=== PATIENT | female | born 1930 | race Caucasian/White ===

== ENCOUNTER 2017-06-07 08:16 | Outpatient (CLI) | payer OTHER ==
[2017-06-07 09:14] LABS: ALANINE AMINOTRANSFERASE 13 U/L (12-78); ALBUMIN 2.5 g/dL (3.4-4.8); ASPARTATE AMINOTRANSFERASE 14 U/L (10-37); CALCIUM 8.6 mg/dL (8.4-11.0); CHLORIDE 111 mmol/L (98-107); CREATININE 1.38 mg/dL (0.55-1.30); GLUCOSE 88 mg/dL (70-99); POTASSIUM 4.2 mmol/L (3.5-5.1); SODIUM SERUM 143 mmol/L (136-145); TOTAL BILIRUBIN 0.4 mg/dL (0.0-1.0); UREA NITROGEN, BLOOD 29 mg/dL (8-21)
[2017-06-07 09:16] LABS: ANION GAP < 3 (5-15)
== END 2017-06-07 19:34 | disposition home or self-care (01) ==
LOC: SLB 08:16
PROVIDERS: ATTEND Physician Assistant Medical
DX: I71.4 Abdominal aortic aneurysm, without rupture (principal)
CPT/HCPCS: 36415; 80053

== ENCOUNTER 2017-06-16 09:04 | Outpatient (CLI) | payer OTHER ==
[2017-06-16 09:42] LABS: BASOPHILS % (AUTO) 0.7 % (0.0-2.0); EOSINOPHILS # (AUTO) 0.2 K/uL (0.0-0.4); EOSINOPHILS % (AUTO) 4.1 % (0.0-4.0); HEMATOCRIT 31.4 % (36-48); HEMOGLOBIN 9.9 g/dL (12.0-16.0); LYMPHOCYTES # (AUTO) 0.9 K/uL (1.0-5.5); LYMPHOCYTES % (AUTO) 19.4 % (20.5-51.5); MEAN CORPUSCULAR HEMOGLOBIN 29 pg (27-31); MEAN CORPUSCULAR HGB CONC 31 % (32-36); MEAN CORPUSCULAR VOLUME 92 fL (79.0-98.0); MONOCYTES # (AUTO) 0.4 K/uL (0.0-1.0); MONOCYTES % (AUTO) 7.9 % (1.7-9.3); NEUTROPHILS # (AUTO) 3.4 K/uL (1.8-7.7); NEUTROPHILS % (AUTO) 67.9 % (40.0-70.0); PLATELET COUNT (AUTO) 187 K/uL (130-430); RED BLOOD CELL COUNT(AUTO) 3.41 MIL/uL (4.2-6.2); RED CELL DISTRIBUTION WIDTH 15.9 % (9.0-15.0); WHITE BLOOD COUNT (AUTO) 4.9 K/uL (4.8-10.8)
[2017-06-16 09:51] LABS: ALANINE AMINOTRANSFERASE 14 U/L (12-78); ALBUMIN 2.9 g/dL (3.4-4.8); ANION GAP 4 (5-15); ASPARTATE AMINOTRANSFERASE 15 U/L (10-37); CALCIUM 8.5 mg/dL (8.4-11.0); CHLORIDE 110 mmol/L (98-107); CREATININE 1.52 mg/dL (0.55-1.30); GLUCOSE 106 mg/dL (70-99); POTASSIUM 4.4 mmol/L (3.5-5.1); SODIUM SERUM 143 mmol/L (136-145); TOTAL BILIRUBIN 0.3 mg/dL (0.0-1.0); UREA NITROGEN, BLOOD 26 mg/dL (8-21)
== END 2017-06-16 20:59 | disposition home or self-care (01) ==
LOC: SLB 09:04
PROVIDERS: ATTEND Physician Assistant Medical
DX: T14.8 Other injury of unspecified body region (principal); I71.4 Abdominal aortic aneurysm, without rupture; M79.89 Other specified soft tissue disorders; X58.XXXA Exposure to other specified factors, initial encounter; Y93.89 Activity, other specified; Y92.89 Other specified places as the place of occurrence of the external cause; Y99.8 Other external cause status
CPT/HCPCS: 36415; 80053; 85025

== ENCOUNTER 2017-07-20 07:41 | Outpatient (CLI) | payer OTHER ==
[2017-07-21 11:14] LABS: FOLATE (FOLIC ACID) 6.5 ng/mL (>3.0)
== END 2017-07-20 20:47 | disposition home or self-care (01) ==
LOC: SLB 07:41
PROVIDERS: ATTEND Psychiatry & Neurology Neurology
DX: I71.4 Abdominal aortic aneurysm, without rupture (principal); M79.89 Other specified soft tissue disorders
CPT/HCPCS: 36415; 82607; 82746

== ENCOUNTER 2018-05-16 08:47 | Outpatient (CLI) | payer OTHER ==
[~2018-05-16 08:47] MED LIST: ACET-2634 PO; ACLI400A2 IH; ALBMDI INH; ASA81 PO; BENZ-16 PO; BUDE6HFA INH; CAT.1 PO; CAT1PAT TD; CHOL100034 PO; CYAN250014 PO; ESCI10TA PO; FAMO20TA8 PO; HAL1 PO; HYDR12.585 PO; IPRA21SP NS; LEVO125T8 PO; LIP10 PO; LISI-209 PO; MEMA10TA PO; SPIRIVA INH; TRAZ-123 PO; iron PO
== END 2018-05-16 19:36 | disposition home or self-care (01) ==
LOC: SMI 08:47 → SLB 19:36
PROVIDERS: ATTEND Psychiatry & Neurology Neurology
DX: G31.9 Degenerative disease of nervous system, unspecified (principal); G60.9 Hereditary and idiopathic neuropathy, unspecified; I10 Essential (primary) hypertension; J44.1 Chronic obstructive pulmonary disease with (acute) exacerbation
CPT/HCPCS: 70551

== ENCOUNTER 2019-01-25 22:06 | Emergency (ER) | payer OTHER ==
[~2019-01-25] VITALS: Ht 165.1 cm; Wt 59.0 kg
[~2019-01-25 22:06] MED LIST changes: -TRAZ-123 PO; +TRAZ-218 PO
[2019-01-25 22:09] VITALS: BP_SYST 127
[2019-01-25] MEDS ORDERED: DONE10TA44 PO (22:32)
[2019-01-26] MEDS ORDERED: DIPH-TET-PERTUS Vaccine 0.5 ML VIAL (ADACEL) I.M. ONE (00:15)
[2019-01-26] MEDS ORDERED: DIPH-TET Vacc 0.5 ML VIAL I.M. ONE (00:30)
[2019-01-26 01:18] VITALS: BP_SYST 127
== END 2019-01-26 01:18 | disposition home or self-care (01) ==
LOC: SED 22:06
DX: S61.412A Laceration without foreign body of left hand, initial encounter (principal); J44.9 Chronic obstructive pulmonary disease, unspecified; I10 Essential (primary) hypertension; E03.9 Hypothyroidism, unspecified; Z88.5 Allergy status to narcotic agent; Z88.8 Allergy status to other drugs, medicaments and biological substances; Z79.82 Long term (current) use of aspirin; Z79.899 Other long term (current) drug therapy; Y04.0XXA Assault by unarmed brawl or fight, initial encounter; Y93.89 Activity, other specified; Y92.89 Other specified places as the place of occurrence of the external cause; Y99.8 Other external cause status
CPT/HCPCS: 90714; 90715; 99283

== ENCOUNTER 2019-02-09 09:55 | Inpatient (IN) | payer OTHER ==
[~2019-02-09] VITALS: Ht 165.1 cm; Wt 60.8 kg
[~2019-02-09 09:55] MED LIST changes: +DONE10TA44 PO
[2019-02-09 10:14] VITALS: BP_SYST 101
--- NOTE | 2019-02-09 10:14 | NUR ---
Placed in room 05. Placed on satellite project site monitor, blood pressure machine and pulse oximeter. To gown for exam. Side rails up. Pt lives at [facility].
--- NOTE | 2019-02-09 10:30 | NUR ---
PT PRESENTS TO ED C/O COUGH AND CHEST PAIN . PT H/O DEMENTIA AND RECENT COUGH.
--- NOTE | 2019-02-09 10:40 | NUR ---
ER Dr. Pedraza at bedside examining patient.
[2019-02-09] MEDS ORDERED: PANTOPRAZOLE SODIUM 40 MG/VIAL (PROTONIX) IVP ONE (11:00)
--- NOTE | 2019-02-09 11:30 | NUR ---
PT HAS RESTING IN BED W/FAMILY AT BEDSIDE.CONTINUING TO MONITOR
[2019-02-09 11:32] LABS: BASOPHILS % (AUTO) 0.4 % (0.0-2.0); EOSINOPHILS % (AUTO) 0.5 % (0.0-4.0); HEMATOCRIT 35.5 % (36-48); HEMOGLOBIN 11.6 g/dL (12.0-16.0); LYMPHOCYTES # (AUTO) 0.7 K/uL (1.0-5.5); LYMPHOCYTES % (AUTO) 8.7 % (20.5-51.5); MEAN CORPUSCULAR HEMOGLOBIN 31 pg (27-31); MEAN CORPUSCULAR HGB CONC 33 % (32-36); MEAN CORPUSCULAR VOLUME 95 fL (79.0-98.0); MONOCYTES # (AUTO) 0.5 K/uL (0.0-1.0); MONOCYTES % (AUTO) 5.5 % (1.7-9.3); NEUTROPHILS % (AUTO) 84.9 % (40.0-70.0); PLATELET COUNT (AUTO) 170 K/uL (130-430); RED BLOOD CELL COUNT(AUTO) 3.73 MIL/uL (4.2-6.2); RED CELL DISTRIBUTION WIDTH 14.1 % (9.0-15.0); WHITE BLOOD COUNT (AUTO) 8.2 K/uL (4.8-10.8)
[2019-02-09] MEDS ORDERED: IPRATROPIUM/ALBUTEROL SULFATE 3 ML AMPUL.NEB (DUONEB) INH ONE (11:45)
[2019-02-09 11:47] LABS: ANION GAP 7 (5-15); CALCIUM 8.6 mg/dL (8.4-11.0); CHLORIDE 105 mmol/L (98-107); CREATININE 1.95 mg/dL (0.55-1.30); GLUCOSE 93 mg/dL (70-99); POTASSIUM 4.9 mmol/L (3.5-5.1); SODIUM SERUM 142 mmol/L (136-145); UREA NITROGEN, BLOOD 42 mg/dL (8-21)
[2019-02-09 11:51] LABS: PROTHROMBIN TIME 10.3 SECS (9.5-12.5)
[2019-02-09 11:56] LABS: ALANINE AMINOTRANSFERASE 17 U/L (12-78); ALBUMIN 2.9 g/dL (3.4-4.8); ASPARTATE AMINOTRANSFERASE 25 U/L (10-37); TOTAL BILIRUBIN 0.3 mg/dL (0.0-1.0)
--- NOTE | 2019-02-09 12:30 | NUR ---
PT AMBUALTED TO RESTROMM W/MODERATE ASSIST FROM FAMILY.PT TOLERATED WELL.
--- NOTE | 2019-02-09 13:30 | NUR ---
PT MAINTAIN NO ACUTE DISTRESS AT THIS TIME.PT REPOSITION FOR COMFORT.
--- NOTE | 2019-02-09 14:21 | NUR ---
Pt resting no acute distress noted at this time.
--- NOTE | 2019-02-09 15:00 | NUR ---
PT DNR PER FAMILY AT BEDSIDE.
[2019-02-09] MEDS ORDERED: POTA10TA15 PO (15:13)
[2019-02-09] MEDS ORDERED: GUAI600T86 PO (15:13)
[2019-02-09] MEDS ORDERED: AMOX/K PO (15:13)
[2019-02-09] MEDS ORDERED: FURO-150 PO (15:13)
--- NOTE | 2019-02-09 15:13 | NUR ---
Medication reconciliation completed with information provided by [facility]. Any prior medication reconciliation on file was reviewed and corrected.
--- NOTE | 2019-02-09 16:11 | NUR ---
Patient will be admitted to care of Dr. Bautista. Admitted to tele unit. Will go to room 129B. Belongings list completed. Summary report printed. Report will be given at bedside. Transfer to tele via ACLS protocol. Licensed nurse present. IV present no signs or symptoms of infiltration.
--- NOTE | 2019-02-09 16:27 | NUR ---
ADMIT NOTE Received pt from ER to the floor with a diagnosis of SHORTNESS OF BREATH, R/O PE. Admission process initiated. patient oriented to pain management, safety and call light-teach back done.
[2019-02-09 16:43] VITALS: BP_SYST 179
[2019-02-09] MEDS ORDERED: HALOPERIDOL 1 MG TABLET (HALDOL) PO SCH (17:00)
[2019-02-09] MEDS ORDERED: cloNIDine HCL 0.1 MG TABLET PO PRN (17:00)
[2019-02-09] MEDS ORDERED: CARVEDILOL 12.5 MG TABLET (COREG) PO ONE (17:00)
[2019-02-09] MEDS ORDERED: LevALBUTEROL HCL 1.25 MG/0.5 ML *CONC.* VIAL.NEB (XOPENEX CONC.) INH PRN ×2 (17:00→18:15)
[2019-02-09] MEDS ORDERED: ACETAMINOPHEN 650 MG SUPP.RECT RC PRN (17:00)
--- NOTE | 2019-02-09 17:27 | NUR ---
CONSULTATION PAGED/CALLED Reason for Consultation: [] PNA Person Who was Notified: [] DR ZAPATA Consulting Physician: [] DR ZAPATA Commercial Roofing Estimator Specialty: [] PULMONOLOGY Ordering Physician: [] DR RUTLEDGE
[2019-02-09] MEDS ORDERED: IPRATROPIUM BROM 0.5 MG/2.5 ML VIAL.NEB (ATROVENT) INH PRN (18:00)
--- NOTE | 2019-02-09 18:00 | NUR ---
Note Pt came to floor at 1600. Orineted to room and nursing routines and facilities. Pt was given tele unit on admission to floor. Pt has some chest pain/discomfort from 2 weeks of continuous coughing. Pt was seen and assessed by Dr Bautista and Dr Nelson. Orders written and carried out. Pt was assisted in eating her dinner by her daughter in law at this time. IV in right forearm intact and patent at this time. No needs given.
[2019-02-09] MEDS: KETOROLAC TROMETHAMINE 15 MG VIAL IVP PRN (18:13)
--- NOTE | 2019-02-09 18:30 | NUR ---
Note Pt off the floor via wheelchair to VQ-scan at this time. Pt was given Coreg PO and Toradol IVP.
--- NOTE | 2019-02-09 19:30 | NUR ---
initial notes: pt is came back from vq scan and now having doppler of both legs. pt tolerate well. pt has iv lock to her right forearm gauge 22- intact. pt has skin tear to her right anterior leg and right elbow. vital sign are with normal limit. explained plan of care tonight. pt agree. needs attended. call light in reach. side rails up. bed alarm on. will monitor.
[2019-02-09 20:21] VITALS: BP_SYST 141
[2019-02-09] MEDS: IPRATROPIUM BROM 0.5 MG/2.5 ML VIAL.NEB (ATROVENT) INH SCH (20:21)
[2019-02-09] MEDS: LevALBUTEROL HCL 1.25 MG/0.5 ML *CONC.* VIAL.NEB (XOPENEX CONC.) INH SCH (20:21)
[2019-02-09] MEDS: BUDESONIDE 0.5 MG/2 ML AMPUL.NEB INH SCH (20:59)
--- NOTE | 2019-02-09 21:00 | NUR ---
DR. RUTLEDGE IS IN THE ROOM. ASK MD IF PT NEEDS BLOOD CULTURE BEFORE GIVIEN IV ANTIBIOTIC. MD STATED PT DONT NEED BLOOD CULTURE AND CONTINUE WITH THE ANTIBIOTIC.
[2019-02-09] MEDS: D5/0.45 NS 1,000 ML IV SCH (21:16)
[2019-02-09] MEDS: methylPREDNISolone SOD SUCC 40 MG/ML VIAL IVP SCH (21:21)
[2019-02-09] MEDS: ATORVASTATIN 10 MG TABLET PO SCH (21:24)
[2019-02-09] MEDS: cefTRIAXone 1 GM in D5W 50 ML IV SCH (21:24)
[2019-02-09] MEDS: guaiFENesin ER 600 MG TAB PO SCH (21:25)
[2019-02-09] MEDS: ENOXAPARIN SODIUM 30 MG/0.3 ML SYRINGE SUBCUT SCH (21:45)
[2019-02-09] MEDS: traZODone HCL 50 MG TABLET (DESYREL) PO SCH (21:47)
--- NOTE | 2019-02-09 22:00 | NUR ---
pt is still awake. alert. assisted pt to bedside commode. back to bed. pt tolerate well. safety on. call light in reach. bed alarm on. will monitor.
[2019-02-09] MEDS: AZITHROMYCIN 500 MG in NS 250 ML IV SCH (23:31)
[2019-02-09] MEDS ORDERED: ACETAMINOPHEN 325 MG TABLET PO PRN (23:45)
--- NOTE | 2019-02-10 | NUR ---
assisted pt to bathroom. unsteady gait observe. back to bed. needs attended. call light in reach. bed alarm on. will monitor.
[2019-02-10] MEDS: LevALBUTEROL HCL 1.25 MG/0.5 ML *CONC.* VIAL.NEB (XOPENEX CONC.) INH SCH ×4 (01:13→20:24)
[2019-02-10] MEDS: IPRATROPIUM BROM 0.5 MG/2.5 ML VIAL.NEB (ATROVENT) INH SCH ×4 (01:14→20:24)
--- NOTE | 2019-02-10 02:17 | NUR ---
notes: pt is awake, alert. ask for snacks. stable. no pain. needs attended. call light in reach. bed alarm on. will monitor.
[2019-02-10 03:30] VITALS: BP_SYST 138
--- NOTE | 2019-02-10 04:15 | NUR ---
notes: pt is sleeping, no sob, no coughing noted. stable. ivf infusing well. bed alarm on. side rails up. low bed position. will monitor.
[2019-02-10] MEDS: guaiFENesin/DEXTROMETHORPHAN 10 ML UDC PO PRN (06:09)
[2019-02-10 06:15] LABS: BASOPHILS % (AUTO) 0.2 % (0.0-2.0); HEMATOCRIT 33.6 % (36-48); LYMPHOCYTES # (AUTO) 0.3 K/uL (1.0-5.5); LYMPHOCYTES % (AUTO) 5.5 % (20.5-51.5); MEAN CORPUSCULAR HEMOGLOBIN 31 pg (27-31); MEAN CORPUSCULAR HGB CONC 33 % (32-36); MEAN CORPUSCULAR VOLUME 95 fL (79.0-98.0); MONOCYTES % (AUTO) 0.6 % (1.7-9.3); NEUTROPHILS # (AUTO) 5.7 K/uL (1.8-7.7); NEUTROPHILS % (AUTO) 93.7 % (40.0-70.0); PLATELET COUNT (AUTO) 159 K/uL (130-430); RED BLOOD CELL COUNT(AUTO) 3.55 MIL/uL (4.2-6.2); RED CELL DISTRIBUTION WIDTH 13.7 % (9.0-15.0); WHITE BLOOD COUNT (AUTO) 6.1 K/uL (4.8-10.8)
--- NOTE | 2019-02-10 06:15 | NUR ---
notes: pt is awake, alert. complain of coughing. prn for coughing given. assisted to bathroom and back to bed. needs attended. safety on. bed alarm on. francia llight in reach. will monitor.
[2019-02-10 06:26] LABS: ANION GAP 6 (5-15); CHLORIDE 103 mmol/L (98-107); CREATININE 1.98 mg/dL (0.55-1.30); GLUCOSE 216 mg/dL (70-99); POTASSIUM 4.8 mmol/L (3.5-5.1); SODIUM SERUM 138 mmol/L (136-145); UREA NITROGEN, BLOOD 45 mg/dL (8-21)
--- NOTE | 2019-02-10 07:20 | NUR ---
closing: pt is awake, alert.having breathing treatment. stable. ivf infusing well. needs attended the whole shift. will give bedside report to am rn.
--- NOTE | 2019-02-10 07:30 | NUR ---
RN OPENING NOTE RECEIVED SBAR REPORT FROM ENDORSING RN AT BEDSIDE. PT APPEARED TO BE SLEEPING UPON ASSESSMENT BUT WOKE EASILY, AAO X 3 AND FORGETFUL/LETHARGIC. NO COMPLAINT OF PAIN. SEE VS FLOW SHEET.
[2019-02-10 07:55] VITALS: BP_SYST 136
[2019-02-10] MEDS ORDERED: POTASSIUM CHLORIDE 10 MEQ TAB.PRT.SR PO SCH (09:00)
[2019-02-10] MEDS: BUDESONIDE 0.5 MG/2 ML AMPUL.NEB INH SCH ×2 (09:34→20:30)
[2019-02-10] MEDS: CITALOPRAM HYDROBROMIDE 20 MG TABLET PO SCH (09:54)
[2019-02-10] MEDS: LEVOTHYROXINE SODIUM 0.125 MG TABLET PO SCH (09:54)
[2019-02-10] MEDS: MEMANTINE HCL 5 MG TABLET PO SCH (09:54)
[2019-02-10] MEDS: FAMOTIDINE 20 MG TABLET PO SCH (09:54)
[2019-02-10] MEDS: ASPIRIN 81 MG TAB.CHEW PO SCH (09:54)
[2019-02-10] MEDS: methylPREDNISolone SOD SUCC 40 MG/ML VIAL IVP SCH ×2 (09:54→21:15)
[2019-02-10] MEDS: CHOLECALCIFEROL (VITAMIN D3) 2,000 UNIT TABLET PO SCH (09:55)
[2019-02-10] MEDS: CARVEDILOL 12.5 MG TABLET (COREG) PO SCH ×2 (09:55→21:20)
[2019-02-10] MEDS: DONEPEZIL HCL 5 MG TABLET (ARICEPT) PO SCH (09:55)
[2019-02-10] MEDS: guaiFENesin ER 600 MG TAB PO SCH ×2 (09:56→21:15)
[2019-02-10 12:33] VITALS: BP_SYST 122
--- NOTE | 2019-02-10 14:00 | NUR ---
FAMILY EDUCATION PT'S DAUGHTER IN LAW PROVIDED WITH DIAGNOSIS AND PLAN OF CARE EDUCATION AT BEDSIDE.
--- NOTE | 2019-02-10 15:24 | NUR ---
SPO2 CHECK, PER DR. JR MCMILLAN REQUESTED SPO2 TEST FOLLOWS RESTING ON 2 L NC: 95% RESTING ON ROOM AIR: 93% WALKING ON ROOM AIR: 99%
[2019-02-10 17:12] VITALS: BP_SYST 155
[2019-02-10] MEDS: D5/0.45 NS 1,000 ML IV SCH (17:15)
[2019-02-10] MEDS: cefTRIAXone 1 GM in D5W 50 ML IV SCH (17:29)
[2019-02-10] MEDS: AZITHROMYCIN 500 MG in NS 250 ML IV SCH (18:12)
--- NOTE | 2019-02-10 19:20 | NUR ---
initial notes: pt is awake, alert, oriented x 3. no pain. no distress. stable vital sign. pt has ivf infusing to her right forearm gauge 22- intact and patent. pt has skin tear to her right anterior leg,right elbow and left wrist.skin discoloration to left forearm, left leg and thigh and right leg due to frequent fall at [facility]. vital sign are with normal limit. explained plan of care tonight. pt agree. needs attended. call light in reach. side rails up. bed alarm on. will monitor.
--- NOTE | 2019-02-10 19:27 | NUR ---
ENDORSEMENT SBAR REPORT ENDORSED TO RECEIVING RN AT BEDSIDE.
[2019-02-10 19:50] VITALS: BP_SYST 141
[2019-02-10] MEDS: KETOROLAC TROMETHAMINE 15 MG VIAL IVP PRN (19:58)
[2019-02-10] MEDS: traZODone HCL 50 MG TABLET (DESYREL) PO SCH (21:15)
[2019-02-10] MEDS: ATORVASTATIN 10 MG TABLET PO SCH (21:15)
[2019-02-10] MEDS: ENOXAPARIN SODIUM 30 MG/0.3 ML SYRINGE SUBCUT SCH (21:20)
--- NOTE | 2019-02-10 22:00 | NUR ---
notes; assisted by landscape technician to bathroom. back to bed, stable. no pain. no sob. needs attended. call light in reach. safety. bed alarm on. will monitor.
--- NOTE | 2019-02-11 00:16 | NUR ---
notes: sleeping, comfortable. no sob and coughing. stable on monitor. needs attended. call light in reach. bed alarm on. will monitor.
[2019-02-11] MEDS: IPRATROPIUM BROM 0.5 MG/2.5 ML VIAL.NEB (ATROVENT) INH SCH ×4 (01:18→20:08)
[2019-02-11] MEDS: LevALBUTEROL HCL 1.25 MG/0.5 ML *CONC.* VIAL.NEB (XOPENEX CONC.) INH SCH ×4 (01:18→20:07)
[2019-02-11 01:20] VITALS: BP_SYST 145
[2019-02-11] MEDS: guaiFENesin/DEXTROMETHORPHAN 10 ML UDC PO PRN ×3 (02:18→16:53)
--- NOTE | 2019-02-11 02:26 | NUR ---
notes: pt wakes up and cough and ask for pain medication, prn medication given. assisted to bathroom, phlebotomy services technician assist pt back to bed. needs attended. bed alarm on. ivf infusing well. call light in reach. bed alarm on. will monitor.
[2019-02-11] MEDS: KETOROLAC TROMETHAMINE 15 MG VIAL IVP PRN ×3 (02:30→16:54)
--- NOTE | 2019-02-11 04:00 | NUR ---
notes: pt is sleeping,comfortable. no pain. no sob, no coughing noted. stable. ivf infusing well. bed alarm on. side rails up. low bed position. will monitor.
--- NOTE | 2019-02-11 06:00 | NUR ---
notes: pt wakes up and assisted by bilingual legal assistant to bathroom. back to bed safely. pt tolerate well. safety on. bed alarm on. will monitor.
--- NOTE | 2019-02-11 07:15 | NUR ---
received report at the bedside with rolando damon rn. patient awake. no coughing noted. breathing even and unlabored. vitals signs stable. iv fluids infusing on well. bed in low position. awake alert but confused. call lights within reach. continue to monitor patients status.
--- NOTE | 2019-02-11 07:23 | NUR ---
closing: pt is resting. wakes up on reporting. stable. ivf infusing well. needs attended the whole shift. bedside report given to am rn.
[2019-02-11 08:13] VITALS: BP_SYST 126
[2019-02-11] MEDS: BUDESONIDE 0.5 MG/2 ML AMPUL.NEB INH SCH ×2 (08:36→21:16)
--- NOTE | 2019-02-11 09:20 | NUR ---
DUE MEDICATION GIVEN
[2019-02-11] MEDS: methylPREDNISolone SOD SUCC 40 MG/ML VIAL IVP SCH ×2 (09:37→21:38)
[2019-02-11] MEDS: FAMOTIDINE 20 MG TABLET PO SCH (09:39)
[2019-02-11] MEDS: ASPIRIN 81 MG TAB.CHEW PO SCH (09:39)
[2019-02-11] MEDS: CHOLECALCIFEROL (VITAMIN D3) 2,000 UNIT TABLET PO SCH (09:39)
[2019-02-11] MEDS: DONEPEZIL HCL 5 MG TABLET (ARICEPT) PO SCH (09:39)
[2019-02-11] MEDS: guaiFENesin ER 600 MG TAB PO SCH ×2 (09:39→21:38)
[2019-02-11] MEDS: CITALOPRAM HYDROBROMIDE 20 MG TABLET PO SCH (09:39)
[2019-02-11] MEDS: LEVOTHYROXINE SODIUM 0.125 MG TABLET PO SCH (09:39)
[2019-02-11] MEDS: MEMANTINE HCL 5 MG TABLET PO SCH (09:40)
[2019-02-11] MEDS: CARVEDILOL 12.5 MG TABLET (COREG) PO SCH ×2 (09:40→21:38)
--- NOTE | 2019-02-11 10:05 | NUR ---
robitussin po 5 ml given po and toradol 15 mg iv given. made comfortable.
[2019-02-11 12:36] VITALS: BP_SYST 132
--- NOTE | 2019-02-11 13:00 | NUR ---
ASSISTED TO THE BATHROOM BUT WEAKNESS NOTED. BUT ABLE NO SOB NOTED.
--- NOTE | 2019-02-11 15:00 | NUR ---
PARAG THE GRANDDAUGHTER CAME AND SEE THE PATIENTS UPDATE. PATIENT STABLE NO PAIN NOTED
--- NOTE | 2019-02-11 16:03 | NUR ---
Nutrition Note RD was consulted by pt's primary RN regarding pt's low appetite and possible need for ONS. CHILD AND FAMILY SERVICES WORKER stated pt ate 30-40% of meals today. RD spoke w/ pt at bedside. Pt was interested in Ensure Enlive (chocolate flavor), chocolate pudding, and peanut butter and jelly sandwich for snacks. RD notified [facility] staff of pt's food preferences and implemented via [employer]. RD to continue to follow as per nutrition care standards.
[2019-02-11] MEDS: AZITHROMYCIN 500 MG in NS 250 ML IV SCH (16:59)
[2019-02-11] MEDS: D5/0.45 NS 1,000 ML IV SCH (17:00)
[2019-02-11 17:16] VITALS: BP_SYST 129
[2019-02-11] MEDS: cefTRIAXone 1 GM in D5W 50 ML IV SCH (17:54)
--- NOTE | 2019-02-11 18:00 | NUR ---
DOWNGRADED TO MEDICAL SURGICAL.
--- NOTE | 2019-02-11 18:10 | NUR ---
IV AZITHROMYCIN IV GIVEN AND ROCEPHIN IV GIVEN
[2019-02-11 19:10] VITALS: BP_SYST 152
--- NOTE | 2019-02-11 19:20 | NUR ---
endorsed to incoming nurse Lg CROW
--- NOTE | 2019-02-11 19:25 | NUR ---
initial notes: pt is awake, alert, oriented x 3. lying in bed. no pain. no distress. stable vital sign. pt has ivf and iv antibiotic still infusing to her right forearm gauge 22- intact and patent. pt has skin tear to her right anterior leg,right elbow and left wrist.still has skin discoloration to left forearm, left leg and thigh and right leg. vital sign are with normal limit. explained plan of care tonight. pt agree. needs attended. call light in reach. side rails up. bed alarm on. will monitor.
[2019-02-11] MEDS: traZODone HCL 50 MG TABLET (DESYREL) PO SCH (21:38)
[2019-02-11] MEDS: ATORVASTATIN 10 MG TABLET PO SCH (21:38)
[2019-02-11] MEDS: ENOXAPARIN SODIUM 30 MG/0.3 ML SYRINGE SUBCUT SCH (21:43)
--- NOTE | 2019-02-11 22:00 | NUR ---
notes: pt is resting at this moment. no cough and no difficulty of breathing. stable. bed alarm on. side rails up. will monitor.
--- NOTE | 2019-02-12 | NUR ---
pt wakes up. assisted by senior salesforce developer mateusz to bathroom and back to bed.tolerate well. needs attended. bed alarm on. will monitor.
[2019-02-12] MEDS: guaiFENesin/DEXTROMETHORPHAN 10 ML UDC PO PRN ×2 (00:23→21:27)
[2019-02-12] MEDS: KETOROLAC TROMETHAMINE 15 MG VIAL IVP PRN ×3 (00:24→16:11)
[2019-02-12] MEDS: LevALBUTEROL HCL 1.25 MG/0.5 ML *CONC.* VIAL.NEB (XOPENEX CONC.) INH SCH ×4 (01:00→20:19)
[2019-02-12] MEDS: IPRATROPIUM BROM 0.5 MG/2.5 ML VIAL.NEB (ATROVENT) INH SCH ×4 (01:00→20:20)
[2019-02-12 01:03] VITALS: BP_SYST 146
--- NOTE | 2019-02-12 02:02 | NUR ---
sleeping at this time. no sob, no cough. stable. ivf infusing well. bed alarm on. call light in reach. will monitor.
--- NOTE | 2019-02-12 04:12 | NUR ---
sleeping, no difficulty of breathing. no pain. stable. bed alarm on. will monitor.
--- NOTE | 2019-02-12 06:00 | NUR ---
pt is sleeping. stable. no pain. no cough. bed alarm on. will monitor.
--- NOTE | 2019-02-12 06:54 | NUR ---
Nutrition Update Luis Carlos Scale 15 noted. Pt admitted for Acute SOB, Possible PE Diet: Mechanical Soft BMI: 22.5 kg/m2 RD to follow per nutrition care standards.
--- NOTE | 2019-02-12 07:27 | NUR ---
closing: pt is awake, alert.no pain. stable. ivf infusing well. needs attended the whole shift. bedside report given to am rn.
[2019-02-12 07:40] VITALS: BP_SYST 158
--- NOTE | 2019-02-12 08:15 | NUR ---
Opening Note Patient resting in bed at this time, A/Ox3, forgetful at times. RT at bedside, patient on breathing treatment, tolerating well. No SOB, no cough noted at this time. On o2 2lpm via nasal cannula. No complaints of pain, Lung sounds clear. Assisted patient to the restroom, minimal assistance required. Patient sitting up in bed at this time, eating breakfast. On fall precautions, reinforced, bed alarm on, bed in lowest position, call light within reach.
[2019-02-12] MEDS: CARVEDILOL 12.5 MG TABLET (COREG) PO SCH ×2 (09:00→20:44)
[2019-02-12] MEDS: BUDESONIDE 0.5 MG/2 ML AMPUL.NEB INH SCH ×2 (09:38→20:35)
[2019-02-12] MEDS: methylPREDNISolone SOD SUCC 40 MG/ML VIAL IVP SCH ×3 (09:52→20:44)
[2019-02-12] MEDS: DONEPEZIL HCL 5 MG TABLET (ARICEPT) PO SCH (09:53)
[2019-02-12] MEDS: MEMANTINE HCL 5 MG TABLET PO SCH (09:53)
[2019-02-12] MEDS: guaiFENesin ER 600 MG TAB PO SCH ×2 (09:54→20:45)
[2019-02-12] MEDS: ASPIRIN 81 MG TAB.CHEW PO SCH (09:54)
[2019-02-12] MEDS: CITALOPRAM HYDROBROMIDE 20 MG TABLET PO SCH (09:54)
[2019-02-12] MEDS: LEVOTHYROXINE SODIUM 0.125 MG TABLET PO SCH (09:54)
[2019-02-12] MEDS: CHOLECALCIFEROL (VITAMIN D3) 2,000 UNIT TABLET PO SCH (09:54)
[2019-02-12] MEDS: FAMOTIDINE 20 MG TABLET PO SCH (09:54)
[2019-02-12 12:42] VITALS: BP_SYST 142
--- NOTE | 2019-02-12 13:11 | NUR ---
BRP: Assisted patient to the bathroom, noted with productive cough. complained of pain on the shoulder blades while going back to bed.
[2019-02-12] MEDS: AZITHROMYCIN 500 MG in NS 250 ML IV SCH (16:12)
[2019-02-12 16:41] VITALS: BP_SYST 139
[2019-02-12] MEDS: cefTRIAXone 1 GM in D5W 50 ML IV SCH (17:38)
[2019-02-12 18:08] VITALS: BP_SYST 139
--- NOTE | 2019-02-12 18:26 | NUR ---
Closing Note Patient sitting up in chair at this time, eating dinner, able to feed self. No SOB, no cough noted at this time. On o2 2lpm via nasal cannula. No complaints of pain at this time, pain medication effective. On fall precautions, reinforced, call light within reach. All needs met at this time.
--- NOTE | 2019-02-12 19:25 | NUR ---
Initial Note Received patient awake, alert and oriented. No SOB noted but coughs occasionally. Denies any pain or n/v at this time. Dressings on right yun and left forearm skin tear are CDI. Saline lock. Right foot slightly edema, elevated on pillows. Heels off bed. Care and monitoring will be provide per protocol. Call light within reach. Bed alarm on and at lowest position at all times. Needs attended. Able to reposition himself. Kept warm and comfortable. VS stable.
[2019-02-12 20:00] VITALS: BP_SYST 133
[2019-02-12] MEDS: traZODone HCL 50 MG TABLET (DESYREL) PO SCH (20:44)
[2019-02-12] MEDS: ATORVASTATIN 10 MG TABLET PO SCH (20:45)
--- NOTE | 2019-02-12 20:45 | NUR ---
RN Note Due meds given, tolerated well. Had several urine incontinence when she coughs. Provided some pads and apple sauce as requested. Right yun dressing CDI. Purple discoloration noted on Left thigh and BUE. Left wrist brace noted. Fall precaution observed. Patient is forgetful at times. Needs attended. Kept warm and comfortable.
[2019-02-12] MEDS: ENOXAPARIN SODIUM 30 MG/0.3 ML SYRINGE SUBCUT SCH (20:46)
--- NOTE | 2019-02-12 22:00 | NUR ---
RN Note Patient awake and alert. Needs to change her pads from urine incontinence when coughing. Kept clean, dry and comfortable. No other complaints.
--- NOTE | 2019-02-13 | NUR ---
RN Note Patient sleeping at this time. No SOB or grimacing noted.
[2019-02-13] MEDS: IPRATROPIUM BROM 0.5 MG/2.5 ML VIAL.NEB (ATROVENT) INH SCH ×4 (01:00→19:39)
[2019-02-13] MEDS: LevALBUTEROL HCL 1.25 MG/0.5 ML *CONC.* VIAL.NEB (XOPENEX CONC.) INH SCH ×4 (01:00→19:39)
[2019-02-13 01:19] VITALS: BP_SYST 152
--- NOTE | 2019-02-13 02:10 | NUR ---
RN Note Assisted to the bathroom and back to bed with assistance No SOB noted. Kept warm and comfortable.
--- NOTE | 2019-02-13 04:23 | NUR ---
RN Note Sleeping comfortably in bed. No signs of acute distress.
[2019-02-13] MEDS: methylPREDNISolone SOD SUCC 40 MG/ML VIAL IVP SCH (04:52)
[2019-02-13] MEDS: KETOROLAC TROMETHAMINE 15 MG VIAL IVP PRN (04:53)
--- NOTE | 2019-02-13 05:00 | NUR ---
Pain med Assisted patient to the bathroom and back to bed. Slightly weak, fall precaution observed. Medicated for chest wall pain when she coughs. Cough is deep and unable to mobilize secretions. HHN requested. Will continue to monitor.
[2019-02-13 06:38] LABS: ANION GAP 7 (5-15); CHLORIDE 105 mmol/L (98-107); CREATININE 1.91 mg/dL (0.55-1.30); GLUCOSE 166 mg/dL (70-99); POTASSIUM 4.5 mmol/L (3.5-5.1); SODIUM SERUM 139 mmol/L (136-145); UREA NITROGEN, BLOOD 70 mg/dL (8-21)
--- NOTE | 2019-02-13 06:43 | NUR ---
End Note Afebrile. VS stable. No complain of SOB or n/v throughout the night. Medicated for chest wall pain one time all night. Ambulated to the bathroom with assist. Patient is slightly weak. Urine incontinence at times when she coughs, uses sanitary pads. Dressings are CDI. Fall and skin precautions observed. Saline lock. Care and monitoring provided per protocol. Call light within reach. Bed alarm on and at lowest position at all times. Needs attended. Kept warm and comfortable.
[2019-02-13 06:45] LABS: BASOPHILS % (AUTO) 0.3 % (0.0-2.0); EOSINOPHILS % (AUTO) 0.1 % (0.0-4.0); HEMATOCRIT 33.5 % (36-48); LYMPHOCYTES # (AUTO) 0.4 K/uL (1.0-5.5); LYMPHOCYTES % (AUTO) 3.5 % (20.5-51.5); MEAN CORPUSCULAR HEMOGLOBIN 31 pg (27-31); MEAN CORPUSCULAR HGB CONC 33 % (32-36); MEAN CORPUSCULAR VOLUME 94 fL (79.0-98.0); MONOCYTES # (AUTO) 0.1 K/uL (0.0-1.0); NEUTROPHILS % (AUTO) 95.1 % (40.0-70.0); PLATELET COUNT (AUTO) 197 K/uL (130-430); RED BLOOD CELL COUNT(AUTO) 3.55 MIL/uL (4.2-6.2); RED CELL DISTRIBUTION WIDTH 13.9 % (9.0-15.0); WHITE BLOOD COUNT (AUTO) 11.6 K/uL (4.8-10.8)
[2019-02-13 08:00] VITALS: BP_SYST 137
--- NOTE | 2019-02-13 08:00 | NUR ---
OPENING NOTE patient received sitting in chair at bedside, patient is A&Ox2, patient denies any sob or acute distress or pain at this time, breathing is even and unlabored on 2L nasal cannula, educated patient on plan of care and call light system, will continue to monitor, safety precautions in place, call light within reach.
[2019-02-13] MEDS: FAMOTIDINE 20 MG TABLET PO SCH (09:01)
[2019-02-13] MEDS: CARVEDILOL 12.5 MG TABLET (COREG) PO SCH ×2 (09:01→20:07)
[2019-02-13] MEDS: CITALOPRAM HYDROBROMIDE 20 MG TABLET PO SCH (09:01)
[2019-02-13] MEDS: MEMANTINE HCL 5 MG TABLET PO SCH (09:01)
[2019-02-13] MEDS: DONEPEZIL HCL 5 MG TABLET (ARICEPT) PO SCH (09:01)
[2019-02-13] MEDS: guaiFENesin ER 600 MG TAB PO SCH ×2 (09:01→20:06)
[2019-02-13] MEDS: LEVOTHYROXINE SODIUM 0.125 MG TABLET PO SCH (09:02)
[2019-02-13] MEDS: CHOLECALCIFEROL (VITAMIN D3) 2,000 UNIT TABLET PO SCH (09:02)
[2019-02-13] MEDS: ASPIRIN 81 MG TAB.CHEW PO SCH (09:02)
[2019-02-13] MEDS ORDERED: 0.45% NS 500 ML IV ONE (09:15)
[2019-02-13] MEDS: BUDESONIDE 0.5 MG/2 ML AMPUL.NEB INH SCH ×2 (09:59→22:15)
--- NOTE | 2019-02-13 10:18 | NUR ---
DC PLANNING Discussed dc plan w Dr Nelson in nsg station, states does not think will need home O2 ordered pulse Ox on room air. BUN up to 70 today, ordered IVF, maybe ready for dc tomorrow. Spoke w dtr in law Azucena @ bedside, states would prefer dc home(back to [facility]) w home health. Has no preference for Home Health company. Called & discussed dc plan w Dr Bautista, will eval pt later today, gave dc planning order for , anticipates for tomorrow.
--- NOTE | 2019-02-13 10:25 | NUR ---
NOTES patient is resting in bed with eyes closed, no acute distress or pain is noted at this time, breathing is even and unlabored on 2l nasal cannula, IVF infusing as ordered, will continue to monitor, safety precautions in place, daughter in law at bedside, call light within reach.
--- NOTE | 2019-02-13 12:08 | NUR ---
Wound Evaluation: Late note for 1208 secondary to patient care. Wound Consult ordered for Low Luis Carlos Score. Patient evaluated for a low Luis Carlos score of 18. Patient was awake, alert, oriented x 2, and received in a [place] Bed with an IsoFlex DELFIN mattress. Patient is able to turn in bed independently. Skin is fair. Recommend encourage and assist patient as needed with repositioning every 2 hours with pillow support. Elevate, off-load and float bilateral heels with pillows. Offload pressure areas with pillows for pressure re-distribution. Perform skin care and monitor skin integrity Q shift. Use moisture barrier cream on moisture susceptible areas QID and PRN for soiling. Skin assessment: 1. Right distal yun: Contusion from fall, present on admission. Open area has 100% pink tissue. No odor, scant sanguineous drainage. Surrounding tissue has dark discolored skin. Open area of contusion measures 0.2 cm x 0.2 cm. Bilateral lower extremities have multiple areas of ecchymosis and scars. Whole area of contusion measures 6.4 cm x 2.1 cm. Recommend: Cleanse wound with normal saline. Pat dry. Apply sure prep to periwound. Cover with foam dressing. Perform wound care daily, and as needed for dressing soiling or dislodgment. 2. Left superior knee: Skin tear, present on admission. Wound bed has 100% dark discolored tissue underneath the skin. No odor, scant sanguineous drainage. Periwound intact. Wound measures 1.9 cm x 1.9 cm. 3. Left dorsal hand, Proximal Wound: Small wound from fall, present on admission. Wound bed has 90% red tissue, 10% black scab. No odor, no drainage. Periwound intact. Wound measures 1.7 cm x 0.4 cm. 4. Left dorsal hand, Distal Wound: Small wound from fall, present on admission. Wound bed has 95% pink tissue, 5% yellow scab. No odor, sno drainage. Periwound intact. Wound measures 0.8 cm x 0.5 cm. Recommend: Cleanse wounds with normal saline. Pat dry. Apply sure prep to periwound. Cover with foam dressing. Perform wound care daily, and as needed for dressing soiling or dislodgment. Addendum: 02/13/19 at 1800 by Yoel Fierro RN Error, all wound dressings should include hydration of wound with Hydrodel.
--- NOTE | 2019-02-13 12:31 | NUR ---
WOUND CARE cleansed right yun skin tear with NS, applied hydrogel and sureprep and applied foam dressing, cleansed left knee skin tear with NS, applied hydrogel and sureprep and applied foam dressing, cleansed left wrist skin tears with NS, applied hydrogel and sureprep and applied nonadhesive foam dressing and wrapped with khoi wrap, patient tolerated well with no pain or acute distress.
[2019-02-13 12:37] VITALS: BP_SYST 133
--- NOTE | 2019-02-13 13:25 | NUR ---
CONSULTATION PAGED REASON FOR CONSULTATION:RENAL INJURY WAS CONSULT CALLED?Y PERSON WHO WAS NOTIFIED:HODA CONSULTING PHYSICIAN:ELISSA AGUIRRE DIRECTOR OF HOME CARE HOSPICE SPECIALTY:NEPROLOGY DIRECTOR OF HOME CARE HOSPICE PHONE NUMBER:[phone] ORDERING PHYSICIAN:PAIGE BERNSTEIN
--- NOTE | 2019-02-13 14:20 | NUR ---
NOTES patient is resting in bed A&O x2, assisted patient to use bedside commode, patient tolerated well, no acute distress or pain is noted at this time, breathing is even and unlabored on 2L nasal cannula, will continue to monitor, safety precautions in place, call light within reach.
--- NOTE | 2019-02-13 14:41 | NUR ---
Dietitian Recommendations * Recommend continuing mechanical soft diet w/ Ensure Enlive TID (ONS provides an additional 1050 kcal/day and 60 gm protein/day) * Encourage increase PO intakes LP, RD Please refer to Nutrition Assessment for details.
--- NOTE | 2019-02-13 15:07 | NUR ---
Discharge Planning: NVP faxed pt order to [facility] (f [phone] p [phone]) Addendum: 02/13/19 at 1633 by Trinity Garcia DP [facility] (f [phone] p [phone]) per Dalila patient is accepted.
[2019-02-13] MEDS: AZITHROMYCIN 500 MG in NS 250 ML IV SCH (16:09)
--- NOTE | 2019-02-13 16:30 | NUR ---
NOTES patient resting in chair at bedside, no acute distress or pain is noted, IVF infusing as ordered, breathing is even and unlabored on 2L nasal cannula, will continue to monitor, safety precautions in place, call light within reach.
[2019-02-13 16:54] VITALS: BP_SYST 135
--- NOTE | 2019-02-13 18:50 | NUR ---
CLOSING NOTE patient is resting in bed, patient tolerated dinner well, breathing is even and unlabored on 2L nasal cannula, patient denies any acute distress or pain at this time, IVF infusing as ordered, all needs were met throughout shift, will endorse report to oncoming nurse, safety precautions in place, call light within reach.
[2019-02-13] MEDS: PREDNISONE 20 MG TABLET PO SCH (18:51)
[2019-02-13] MEDS: cefTRIAXone 1 GM in D5W 50 ML IV SCH (18:51)
[2019-02-13 20:00] VITALS: BP_SYST 140
--- NOTE | 2019-02-13 20:00 | NUR ---
Initial Notes Received patient resting in bed, awake, alert, oriented to name and place, seems very forgetful. Patient denies any acute distress or pain at this time. Vital signs stable. Breathing is even and unlabored. IV site patent/clean/dry. Dressings noted, clean/dry/intact, changed by prior shift. Needs addressed. Educated patient regarding use of call light for assistance and fall precautions, patient verbalized understanding. Call light in hand, fall precautions in place. Will continue to monitor.
[2019-02-13] MEDS: BALSAM PERU/CASTOR OIL 60 GM OINT...G. TP SCH (20:06)
[2019-02-13] MEDS: ATORVASTATIN 10 MG TABLET PO SCH (20:06)
[2019-02-13] MEDS: traZODone HCL 50 MG TABLET (DESYREL) PO SCH (20:06)
[2019-02-13] MEDS: ENOXAPARIN SODIUM 30 MG/0.3 ML SYRINGE SUBCUT SCH (20:07)
--- NOTE | 2019-02-13 22:00 | NUR ---
Nursing Notes Patient resting in bed, awake, no change to mentation. Patient denies any acute distress or pain when asked. Breathing is even and unlabored. Assisted patient to restroom for toileting needs. Needs addressed. Call light in hand, fall precautions in place.
--- NOTE | 2019-02-14 | NUR ---
Nursing Notes Patient resting in bed with eyes closed, easily aroused upon nurse entering room. Patient denies any acute distress or pain when asked. Breathing is even and unlabored. Assisted patient to restroom for toileting needs. Needs addressed. Call light in hand, fall precautions in place. Will continue to monitor.
[2019-02-14 00:27] VITALS: BP_SYST 123
[2019-02-14] MEDS: IPRATROPIUM BROM 0.5 MG/2.5 ML VIAL.NEB (ATROVENT) INH SCH ×3 (00:50→13:29)
[2019-02-14] MEDS: LevALBUTEROL HCL 1.25 MG/0.5 ML *CONC.* VIAL.NEB (XOPENEX CONC.) INH SCH ×3 (00:50→13:29)
--- NOTE | 2019-02-14 02:00 | NUR ---
Nursing Notes Patient resting in bed with eyes closed. No acute distress noted, breathing is even and unlabored. Call light in hand, fall precautions in place.
--- NOTE | 2019-02-14 04:00 | NUR ---
Nursing Notes Patient continues to be resting in bed with eyes closed. No distress noted. Breathing is even and unlabored. Call light in hand, fall precautions in place. Will continue to monitor.
--- NOTE | 2019-02-14 06:41 | NUR ---
Closing Notes Patient resting in bed with eyes closed, easily aroused. Patient denies any acute distress or pain at this time. Breathing is even and unlabored. IV site patent/clean/dry, no S/S infection/infiltration noted. Dressings remain clean/dry/intact. Needs addressed throughout shift. Call light in hand, fall precautions in place. Will continue to monitor for changes and safety, and endorse all patient care/needs to oncoming nurse.
[2019-02-14 06:57] LABS: ANION GAP 7 (5-15); CHLORIDE 106 mmol/L (98-107); CREATININE 1.82 mg/dL (0.55-1.30); GLUCOSE 157 mg/dL (70-99); POTASSIUM 4.6 mmol/L (3.5-5.1); SODIUM SERUM 138 mmol/L (136-145); UREA NITROGEN, BLOOD 73 mg/dL (8-21)
--- NOTE | 2019-02-14 08:00 | NUR ---
OPENING NOTE patient received resting in bed A&O x2, breathing is even and unlabored on 2L nasal cannula, assisted patient to use bathroom, patient ambulated with assist, patient denies any acute distress or pain at this time, will continue to monitor, safety precautions in place, call light within reach.
[2019-02-14 08:02] VITALS: BP_SYST 140
[2019-02-14] MEDS: MEMANTINE HCL 5 MG TABLET PO SCH (08:27)
[2019-02-14] MEDS: LEVOTHYROXINE SODIUM 0.125 MG TABLET PO SCH (08:27)
[2019-02-14] MEDS: guaiFENesin ER 600 MG TAB PO SCH (08:28)
[2019-02-14] MEDS: ASPIRIN 81 MG TAB.CHEW PO SCH (08:28)
[2019-02-14] MEDS: PREDNISONE 20 MG TABLET PO SCH (08:28)
[2019-02-14] MEDS: DONEPEZIL HCL 5 MG TABLET (ARICEPT) PO SCH (08:28)
[2019-02-14] MEDS: CITALOPRAM HYDROBROMIDE 20 MG TABLET PO SCH (08:28)
[2019-02-14] MEDS: CHOLECALCIFEROL (VITAMIN D3) 2,000 UNIT TABLET PO SCH (08:28)
[2019-02-14] MEDS: FAMOTIDINE 20 MG TABLET PO SCH (08:28)
[2019-02-14] MEDS: CARVEDILOL 12.5 MG TABLET (COREG) PO SCH (08:28)
[2019-02-14] MEDS: BALSAM PERU/CASTOR OIL 60 GM OINT...G. TP SCH (08:29)
[2019-02-14] MEDS: BUDESONIDE 0.5 MG/2 ML AMPUL.NEB INH SCH (09:25)
--- NOTE | 2019-02-14 10:15 | NUR ---
NOTES patient is ambulating around the floor with physical therapy at this time, patient tolerating well with no acute distress or sob, will continue to monitor, safety precautions in place.
--- NOTE | 2019-02-14 12:30 | NUR ---
NOTES patient is eating lunch in chair at bedside at this time, breathing is even and unlabored on 2L nasal cannula, no acute distress or pain is noted at this time, will continue to monitor, safety precautions in place, call light within reach.
--- NOTE | 2019-02-14 13:36 | NUR ---
Case mgt: Rec'd discharge order--pt lives at [facility]--I asked nurse Irina to check 02 sat on room air prior to discharge, as pt is currently on 02 at [facility] and doesn't use 02 at [facility]--I requested Irina to call family to take pt back to [facility]--Irina indicates daughter in law Azucena will come back later today.--RUBY RN
[2019-02-14 13:40] VITALS: BP_SYST 139
--- NOTE | 2019-02-14 14:03 | NUR ---
NOTES assisted patient to bathroom, patient ambulated with assistance, removed oxygen to see how patient does on room air, oxygen saturation 92% on room air, patient denies any acute distress or pain, will continue to monitor, safety precautions in place, call light within reach.
[2019-02-14 14:42] VITALS: BP_SYST 139
== END 2019-02-14 15:37 | disposition home or self-care (01) | DRG 177 ==
LOC: SED 09:55 → STU 15:57 → SMU 02-11 15:14
PROVIDERS: ADMIT Family Medicine; ATTEND Family Medicine
DX: J15.6 Pneumonia due to other Gram-negative bacteria (principal); N17.0 Acute kidney failure with tubular necrosis; I13.0 Hypertensive heart and chronic kidney disease with heart failure and stage 1 through stage 4 chronic kidney disease, or unspecified chronic kidney disease; J44.0 Chronic obstructive pulmonary disease with (acute) lower respiratory infection; J44.1 Chronic obstructive pulmonary disease with (acute) exacerbation; E03.9 Hypothyroidism, unspecified; E78.5 Hyperlipidemia, unspecified; E86.0 Dehydration; F02.80 Dementia in other diseases classified elsewhere, unspecified severity, without behavioral disturbance, psychotic disturbance, mood disturbance, and anxiety; G30.9 Alzheimer's disease, unspecified; I50.9 Heart failure, unspecified; J20.9 Acute bronchitis, unspecified; N18.9 Chronic kidney disease, unspecified; R09.02 Hypoxemia; W18.39XA Other fall on same level, initial encounter; R07.89 Other chest pain; Z87.891 Personal history of nicotine dependence; Z90.710 Acquired absence of both cervix and uterus; Y93.89 Activity, other specified; Y92.89 Other specified places as the place of occurrence of the external cause; Y99.8 Other external cause status; Z88.8 Allergy status to other drugs, medicaments and biological substances; Z88.5 Allergy status to narcotic agent; Z79.899 Other long term (current) drug therapy; Z79.82 Long term (current) use of aspirin
CPT/HCPCS: 36415; 36600; 70450-TC; 71045; 72170-TC; 73552; 76770; 78579; 78580-TC; 80048; 80053; 82803-TC; 83880; 84484; 85025; 85379; 85610-TC; 85730-TC; 93005; 93306; 93970; 94640; 94760; 97110-GP; 97116-GP; 97530-GP; 99285; A9539; A9540; G0378; J0456; J0696; J1030; J1650; J1885; J7030; J7050; J7060; J7512; J7612; J7620; J7626